=== PATIENT | female | born 1940 | race Caucasian/White ===

== ENCOUNTER → 2018-04-20 09:30 | Outpatient (BNVA) | payer MEDICARE, OTHER, SELFPAY | PROVIDERS: PCP Family Medicine; Referring Provider Family Medicine; Visit Provider Surgery | DX: L98.9 Disorder of the skin and subcutaneous tissue, unspecified (principal); I10 Essential (primary) hypertension | CPT/HCPCS: 99203 ==

== ENCOUNTER 2018-05-09 07:16 | Day surgery (SDC) | payer MEDICARE, OTHER, SELFPAY ==
--- NOTE | 2018-05-09 06:47 | W.PM.OP ---
Date of service: 05/09/18 Time of Service: 08:33 Operative Note DATE OF PROCEDURE: 05/09/18 PRE-OP DIAGNOSIS: Skin Lesion of right upper extremity POST-OP DIAGNOSIS: same PROCEDURE: Wide local excision of skin lesion Lesion measured 2 x 3 cm Excision size- 4 x 8 cm SURGEON: Yesica Cleveland REVOLVING FIELD ASSEMBLER: Pat Motley ANESTHESIA: MAC (Brandi Castellanos, LOAN ANALYST/ ASA 3) ESTIMATED BLOOD LOSS: 5 PATHOLOGY: other (skin lesion marked on the superior corner) COMPLICATIONS: None Patient was transported to: same day Patient's condition: stable Indications: Mrs. Guerra is a pleasant 77 year old female with a 2.3 x 3 cm skin lesion on her right upper extremity. Risks, benefits, complications of right local excision were reviewed with the patient. Patient wished to proceed. No guarantees were given or implied. Findings: 2 x 3 cm lesion with thick scab Procedure Description: After informed consent was obtained the patient was taken to the operating room and placed in a supine position. Monitors were applied and a timeout was done. The patient's name, date of , procedure type and site, allergies to medications and any prophylactic antibiotics were reviewed. Her right upper extremity was then prepped and draped in a sterile surgical fashion using chlorprep. The site been marked in same day surgery with my initials. The lesion was measured at 2 x 3 cm. An elliptical area was marked around the lesion measuring 4 x 8 cm in a vertical fashion around the lesion. 30 cc of Exparel mixed with half percent bupivacaine was then injected into the dermis and subcutaneous tissue . Next using a 15 blade the skin was incised along the previously marked area down to the subcutaneous fat. Cautery was then used to go through the subcutaneous fat circumferentially and under the lesion. Once the lesion was removed the superior corner was marked with 3-0 Vicryl. The wound was slightly irrigated and any small bleeders were cauterized. Once the wound was dry skin flaps were created circumferentially in order to take tension off the skin. The subcutaneous tissue was then re-approximated with interrupted 2-0 Vicryl sutures. The dermis was closed using 3-0 Prolene horizontal mattress sutures. 10 more cc of the Exparel and bupivocaine was injected into the dermis. The skin was then cleaned and dried Mastisol and Steri-Strips were applied over the sutures. 4 x 4's were then placed over the incision and secured with Kerlix. Patient was then awoken up from her MAC sedation and taken back to same day surgery in stable condition. She tolerated the procedure well. There were no immediate complications. Instrument, sponge and needle counts were correct at the end of the case x2.
--- NOTE | 2018-05-09 06:52 | W.PM.DSUDISC ---
Discharge Plan Disposition Patient Disposition: HOME Condition: Good Discharge Details Reason For Visit: Right upper extremity skin lesion Attending Provider: Yesica Cleveland Primary Care Provider: Robinson Zacarias JR Home Meds and New Rx's Prescriptions: Continued cholecalciferol (vitamin D3) 1,000 unit capsule 1,000 unit PO DAILY RF: 0 ympdlxcqzj-nwitpdxvx-ftwarmnmf 10-160-12.5 mg tablet 1 tab PO DAILY RF: 0 nifedipine 30 mg tablet extended release 30 mg PO DAILY RF: 0 metoprolol tartrate 50 mg tablet 50 mg PO DAILY RF: 0 aspirin [Adult Aspirin Regimen] 81 mg tablet,delayed release (DR/EC) 81 mg PO DAILY RF: 0 Discharge Instructions Additional Instructions: Activity at Home after surgery: 1. Make sure you walk outside at least 4 times per day 2. You should be able to climb a flight of stairs 3. No driving while in pain or taking pain medications 4. No strenuous activity Diet, Nutrition, & wound healin. Avoid alcohol until after you are recovered from your surgery 2. Make sure to eat plenty of lean protein (meat, fish, eggs, cottage cheese, beans) 3. Eat a variety of fruits and vegetables. Eat plenty of high fiber foods to avoid constipation. 4. Drink plenty of liquids to stay hydrated and avoid constipation Pain Medications: 1. Alternate Tylenol 1000 mg and Ibuprofen 600 mg every 3 hours For Constipation: 1. Take Milk of Magnesia or MiraLax as needed for constipation Other: 1. You may shower daily. Do not scrub the incisions 2. Do not soak the incisions for 1 week 3. You may alternate ice and heat as needed for pain and swelling Wound Care: 1. Keep the incisions clean and dry Other Services that may have been ordered: 0 Home Health- to help with dressing changes 0 Outpatient physical therapy Please call our office if you develop: 1. Fevers >101.5 2. Nausea or Vomiting 3. Worsening pain 4. Redness and thick discharge from the wounds If after hours please call the Hospital at and ask to speak to the on-call surgeon Referrals: Pat Motley PA [[facility]] - 05/18/18 11:45 am (for suture removal) Activity:: Activity as Tolerated Diet:: As Tolerated Discharge Orders Discharge Orders: Discharge Order (Routine); Ordered 05/09/18 Ordered By: Yesica Cleveland DS: Diagnosis Discharge Diagnosis (1) Skin lesion of right arm: Status: Deleted (2) H/O radical excision of skin lesion: Status: Deleted
--- NOTE | 2018-05-09 06:53 | ROE_ITS ---
Date of service: 05/09/18 Time of Service: 08:33 Operative Note DATE OF PROCEDURE: 05/09/18 PRE-OP DIAGNOSIS: Skin Lesion of right upper extremity POST-OP DIAGNOSIS: same PROCEDURE: Wide local excision of skin lesion Lesion measured 2 x 3 cm Excision size- 4 x 8 cm SURGEON: Yesica Cleveland MANAGER STORE: Pat Motley ANESTHESIA: MAC (Brandi Castellanos, RESIDENTIAL SUBSTANCE ABUSE COUNSELOR/ ASA 3) ESTIMATED BLOOD LOSS: 5 PATHOLOGY: other (skin lesion marked on the superior corner) COMPLICATIONS: None Patient was transported to: same day Patient's condition: stable Indications: Mrs. Guerra is a pleasant 77 year old female with a 2.3 x 3 cm skin lesion on her right upper extremity. Risks, benefits, complications of right local excision were reviewed with the patient. Patient wished to proceed. No guarantees were given or implied. Findings: 2 x 3 cm lesion with thick scab Procedure Description: After informed consent was obtained the patient was taken to the operating room and placed in a supine position. Monitors were applied and a timeout was done. The patient's name, date of , procedure ty pe and site, allergies to medications and any prophylactic antibiotics were reviewed. Her right upper extremity was then prepped and draped in a sterile surgical fashion using chlorprep. The site been marked in same day surgery with my initials. The lesion was measured at 2 x 3 cm. An elliptical area was marked around the lesion measuring 4 x 8 cm in a vertical fashion around the lesion. 30 cc of Exparel mixed with half percent bupivacaine was then injected into the dermis and subcutaneous tissue . Next using a 15 blade the skin was incised along the previously marked area down to the subcutaneous fat. Cautery was then used to go through the subcutaneous fat circumferentially and under the lesion. Once the lesion was removed the superior corner was marked with 3-0 Vicryl. The wound was slightly irrigated and any small bleeders were cauterized. Once the wound was dry skin flaps were created circumferentially in order to take tension off the skin. The subcutaneous tissue was then re- approximated with interrupted 2-0 Vicryl sutures. The dermis was closed using 3-0 Prolene horizontal mattress sutures. 10 more cc of the Exparel and bupivocaine was injected into the dermis. The skin was then cleaned and dried Mastisol and Steri-Strips were applied over the sutures. 4 x 4's were then placed over the incision and secured with Kerlix. Patient was then awoken up from her MAC sedation and taken back to same day surgery in stable condition. She tolerated the procedure well. There were no immediate complications. Instrument, sponge and needle counts were correct at the end of the case x2.
--- NOTE | 2018-05-09 06:55 | PDOC.DSDIS_ITS ---
Discharge Plan Disposition Patient Disposition: HOME Condition: Good Discharge Details Reason For Visit: Right upper extremity skin lesion Attending Provider: Yesica Cleveland Primary Care Provider: Robinson Zacarias JR Home Meds and New Rx's Prescriptions: Continued cholecalciferol (vitamin D3) 1,000 unit capsule 1,000 unit PO DAILY RF: 0 xzptmtyxqb-qekpydosd-expjpnubc 10-160-12.5 mg tablet 1 tab PO DAILY RF: 0 nifedipine 30 mg tablet extended release 30 mg PO DAILY RF: 0 metoprolol tartrate 50 mg tablet 50 mg PO DAILY RF: 0 aspirin [Adult Aspirin Regimen] 81 mg tablet,delayed release (DR/EC) 81 mg PO DAILY RF: 0 Discharge Instructions Additional Instructions: Activity at Home after surgery: 1. Make sure you walk outside at least 4 times per day 2. You should be able to climb a flight of stairs 3. No driving while in pain or taking pain medications 4. No strenuous activity Diet, Nutrition, & wound healin. Avoid alcohol until after you are recovered from your surgery 2. Make sure to eat plenty of lean protein (meat, fish, eggs, cottage cheese, beans) 3. Eat a variety of fruits and vegetables. Eat plenty of high fiber foods to avoid constipation. 4. Drink plenty of liquids to stay hydrated and avoid constipation Pain Medications: 1. Alternate Tylenol 1000 mg and Ibuprofen 600 mg every 3 hours For Constipation: 1. Take Milk of Magnesia or MiraLax as needed for constipation Other: 1. You may shower daily. Do not scrub the incisions 2. Do not soak the incisions for 1 week 3. You may alternate ice and heat as needed for pain and swelling Wound Care: 1. Keep the incisions clean and dry Other Services that may have been ordered: 0 Home Health- to help with dressing changes 0 Outpatient physical therapy Please call our office if you develop: 1. Fevers >101.5 2. Nausea or Vomiting 3. Worsening pain 4. Redness and thick discharge from the wounds If after hours please call the Hospital at and ask to speak to the on-call surgeon Referrals: Pat Motley PA [[facility]] - 05/18/18 11:45 am (for suture removal) Activity:: Activity as Tolerated Diet:: As Tolerated Discharge Orders Discharge Orders: Discharge Order (Routine); Ordered 05/09/18 Ordered By: Yesica Cleveland DS: Diagnosis Discharge Diagnosis (1) Skin lesion of right arm: Status: Deleted (2) H/O radical excision of skin lesion: Status: Deleted
[2018-05-09 07:47] VITALS: BP 144/69; PULSE 67; RESP 18; TEMP 36.3; O2SAT 96
[2018-05-09] MEDS: Lactated Ringers 1,000 ML 80 ML IV (08:03)
--- NOTE | 2018-05-09 08:45 | SKI_PTH ---
PATIENT: Bárbara Guerra LOC: [facility] U#:[id number] AGE/SX: 77/F ROOM: RE05/09/[address]: Yesica Cleveland MD : 1940 BED: DIS: 05/09/2018 SPEC #: [id number] RECD: 05/09/18 12:38 STATUS: LUIS ANTONIO REEugenie #: [id number] ANTIONE: 05/09/18 08:[address]: Yesica Cleveland DEPT: Surgical Specimen RECD BY: Claudia Garcia ENTERED: 05/09/18 12:42 SP TYPE: PAOLA OTHR DR: Robinson Zacarias JR Tissues: 1 - SKIN BIOPSY(SHAVE/PUNCH) Procedures: SKIN LEVEL 4 Comments: [id number]
[2018-05-09] MEDS: Bupivacaine 0.5% Pres-Free 30 ML VIAL (08:58)
[2018-05-09 09:46] VITALS: BP 140/74; PULSE 54; RESP 18; TEMP 35.9; O2SAT 95
== END 2018-05-09 10:10 | disposition home or self-care (01) ==
LOC: SUR 07:16
PROVIDERS: PCP Family Medicine; Visit Provider Surgery
PROC: (CPT 11406; principal; 2018-05-09 08:30)
DX: L90.5 Scar conditions and fibrosis of skin (principal); I10 Essential (primary) hypertension
CPT/HCPCS: 11406; 12034; 88304; 88305

== ENCOUNTER → 2018-05-18 11:51 | Outpatient (BNVA) | payer MEDICARE, OTHER, SELFPAY | PROVIDERS: PCP Family Medicine; Referring Provider Family Medicine; Visit Provider Physical Therapy Assistant | DX: L98.9 Disorder of the skin and subcutaneous tissue, unspecified; I10 Essential (primary) hypertension; Z48.02 Encounter for removal of sutures ==

== ENCOUNTER → 2022-03-24 12:58 | Outpatient (CLI) | payer MEDICARE, OTHER, SELFPAY ==
--- NOTE | 2022-03-24 | DI.CT_ITS ---
Exam(s) CT CHEST W EXAM: CT CHEST W CLINICAL HISTORY: ABNL CXR AT [facility], HX BREAST CANCER TECHNIQUE: Imaging Protocol: Axial computed tomography images with coronal and sagittal reformatted images were created and reviewed CONTRAST MATERIAL: Intravenous: Omnipaque 350 Contrast volume:70 ml. COMPARISON: DX XR CHEST 2 VIEWS from 03/23/2022 FINDINGS: Tracheobronchial tree: No bronchiectasis or mucous plugging. Mediastinum and Missy: No dominant adenopathy or fluid collection. Pulmonary parenchyma: Underlying mild emphysematous changes. Dense area of consolidation in the post eromedial right upper lobe as well as the entire right lower lobe. Significant atelectasis of the ri ght upper lobe and multiple cystic spaces. 13 x 17 by 12 millimeter mass superior segment right lowe r lobe. Additional nodule more inferiorly measuring 6 x 7 millimeters. L2 other small tiny nodules are seen in the adjacent region of the right lower lobe. Pleura: No effusion or pneumothorax. Heart: Mildly dilated right atrium.. coronary artery calcifications are seen. Aorta: Thoracic aorta non-dilated. Upper abdomen: Unremarkable. Lymph nodes: Within normal limits. Bones: Degenerative changes. Minimal T7 compression. Severe degenerative changes right shoulder. No lytic or blastic lesions. Soft tissues: Monitoring device medial left upper chest. IMPRESSION: Severe pneumonia with dense consolidation of the right upper lobe with severe atelectasis. consolid ation of the entire right lower lobe. 17 millimeter mass superior segment left lower lobe. Additional 7 millimeter mass or stone posterior left lower lobe. Findings could be infectious however the appearance is suspicious for malignancy. RADIATION DOSE DELIVERED: 696.19mGy.cm Total DLP DATA REPOSITORY: All CT scans at this facility are submitted to the National Radiology Data Registry (NRDR) Dose Index Registry (DIR) with the [employer] ([employer]). RADIATION OPTIMIZATION: All CT scans at this facility use at least one of these dose optimization te chniques: automated exposure control; mA and/or kV adjustment per patient size (includes targeted exa ms where dose is matched to clinical indication); or iterative reconstruction.
[2022-03-24] MEDS: Omnipaque 350 MG/ML 100 ML BTL IJ (14:07)
[2022-03-24] MEDS: Normal Saline - Diluent 50 ML VIAL IJ (14:08)
== END ==
PROVIDERS: PCP Family Medicine; Visit Provider Family Medicine
DX: J18.9 Pneumonia, unspecified organism (principal); J98.11 Atelectasis; R91.8 Other nonspecific abnormal finding of lung field
CPT/HCPCS: 71260; J3490

== ENCOUNTER 2022-09-28 15:00 | Inpatient (IN) | payer MEDICARE, OTHER, SELFPAY ==
[2022-09-28] VITALS (56 sets, daily range): BP systolic 79–114; BP diastolic 27–79; PULSE 69–141; RESP 4–30; TEMP 36.6; O2SAT 91–94
--- NOTE | 2022-09-28 15:00 | RT.EKG_ITS ---
APPROVED REPORT Exam: Resting ECG Reason for Exam: weakness Patient Location: E HR:99 bpm ECG Measurements Heart Rate 99 AXIS ID [id number] P [id number] QRSd 144 QRS -76 QT 426 T 85 QTc 547 Conclusion Accelerated junctional rhythm...absent P waves, accele'd V-rate IVCD, consider RBBB...QRSd>120mS, terminal axis(90,270) LVH with secondary repolarization abnormality...multi-LVH criteria, abnrm ST-T ST elevation secondary to LVH...Multiple VCG criteria
--- NOTE | 2022-09-28 15:16 | ED.GENADUL_ITS ---
Discharge Plan Disposition Patient Disposition: Admit to [facility] Discharge Details Clinical Impression: Sepsis, Pneumonia, Lung cancer, Non-ST elevation NM (NSTEMI) Primary Care Provider: Robinson Zacarias JR ED Provider: Ashvin De Dios Home Meds and New Rx's Prescriptions: Continued metoprolol succinate 50 mg cap,sprinkle,ER 24hr dose pack 50 mg PO DAILY cholecalciferol (vitamin D3) 1,000 unit capsule 1,000 unit PO DAILY Eliquis 5 mg tablet 5 mg PO BID loratadine [Claritin] 10 mg tablet 10 mg PO DAILY fluticasone propionate 50 mcg/actuation spray,suspension 1 spray intranasal DAILY Rx Instructions: administer into each nostril valsartan-hydrochlorothiazide 160-12.5 mg tablet 1 tab PO DAILY Discharge Data Discharge Physician: Ashvin De Dios Medical Decision Making Patient presents emergency department with 2 weeks of lethargy weakness and for the last week not eating not drinking with profuse watery diarrhea and now shortness of breath who is hypotensive initially. Sepsis protocol was started with 30 cc/kg IV fluid hydration blood cultures lactic acid empiric antibiotics. Patient was given IV fluids Toradol 2700 with improvement of her pressure patient was 100/70. EKG was done which showed a left bundle branch block and A- fib. monitoring analyst shows continuation of the left bundle with alternation in periods of A-fib with normal sinus rhythm and probably PVCs. [id number] ultrasound shows a hyperdynamic ventricle with a normal to elevated ejection fraction and a collapsed IVC compatible with hypotension and dehydration. There is to note the anteroseptal wall is hypokinetic. Cardiology was consulted who feels at this time this is more related to the overall systemic illness which is dehydration and sepsis and they will not indicate a cardiac authorization at this time. Patient has somewhat improved with fluids and antibiotics and will be admitted to the intensive care unit. Chest x-ray shows an infiltrate in the right lower lung with atelectasis and probably an effusion pain and can be the cause of the sepsis Differential Diagnosis Differential Diagnosis: 1. Sepsis 2. ACS 3. Dehydration Medical Records Medical records reviewed: Yes I reviewed the patient's medical records. Imaging Data Radiologic Study: Imaging: X-Ray My impression: Right middle lower lobe infiltrate with effusion and atelectasis Radiologist's impression: Patient Name: Jim Kerr Unit #: [id number] Loc: ER ? Ordering Provider:? Status: REG ER ? Primary Care Provider: Benjamin Varghese Date of Exam: 09/28/22 Sex: M ? : 12/17/2012 Age: 9 ? Exam(s) PROCEDURE INFORMATION: Exam: US Scrotum Exam date and time: 09/28/2022 4:50 PM Age: 9 years old Clinical indication: Scrotum pain TECHNIQUE: Imaging protocol: Real-time ultrasound of the scrotum and contents with color Doppler and image documentation. COMPARISON: No relevant prior studies available. FINDINGS: Right testicle: The right testicle is normal appearance with normal color Doppler flow measuring 1.6 x 1.1 x 1.8 cm. Left testicle: The left testicle is normal appearance with normal color Doppler flow measuring 2.1 x 1.2 x 1.7 cm. Epididymides: The right epididymal head is normal appearance measuring 0.6 x 0.8 x 0.6 cm. The left epididymis demonstrates normal color Doppler flow measuring 0.6 x 0.9 x 0.6 cm. A 0.3 x 0.3 cm epididymal cyst is seen. Scrotum/soft tissues: No right-sided varicocele or hydrocele. No left-sided varicocele or hydrocele. Other findings: A possible left lateral inguinal hernia is seen which may contain loops of bowel. IMPRESSION: 1. ? No evidence for testicular torsion. 2. ? Possible left lateral inguinal hernia, which may contain loops of bowel. 3. ? Small left-sided epididymal cyst. Dictated and Authenticated by: Mis Calix MD. Ordering:GRETCHEN Lock MD Ordered By:? Lab Data Lab results reviewed: Yes I reviewed the patient's lab results. Lab results narrative: Please see above the narrative of the abnormal labs and the data analyzed by me ECG Data Attestation: I personally reviewed and interpreted this ECG (s) as follows: Prior ECG tracings: not available for review Interpretation: wide complex tachycardia alternating witb afic an aberrancy and PVC HPI General Date/Time Provider Initiated Documentation: 09/28/22 15:12 . HPI Narrative: Patient presents emergency department complaint of 3 days of feeling very weak tired not eating or drinking well inhabitant and also having watery diarrhea. Patient was diagnosed with lung cancer months ago and received immunotherapy ab out 2 weeks ago which according to family she did well. Today she says she feels very weak tired denies any dizziness denies any chest pain denies any headache. Also reports shortness of breath especially on exertion and states that she uses oxygen at home at night but recently she had to up the oxygen to have it delivered all day. Reports cough nonproductive sputum. Denies any dysuria. Related Data Home Medications Medication Instructions Recorded Confirmed cholecalciferol (vitamin D3) 25 1,000 unit PO DAILY 04/09/18 01/25/22 mcg (1,000 unit) capsule metoprolol succinate 50 mg capsule 50 mg PO DAILY 05/18/18 01/25/22 sprinkle, ext. release 24 hr apixaban 5 mg tablet (Eliquis) 5 mg PO BID 01/25/22 01/25/22 fluticasone propionate 50 1 spray intranasal DAILY post 01/25/22 01/25/22 mcg/actuation nasal nasal drip spray,suspension loratadine 10 mg tablet (Claritin) 10 mg PO DAILY 01/25/22 01/25/22 valsartan 160 1 tab PO DAILY 01/25/22 mg-hydrochlorothiazide 12.5 mg tablet Allergies Allergy/AdvReac Type Severity Reaction Status Date / Time No Known Allergies Allergy Verified 01/25/22 13:05 General Stated Complaint: GenMedical GUSTAVO: 3 Review of Systems All systems reviewed & are unremarkable except as noted in HPI and below Constitutional Constitutional: Reports as per HPI, Reports daytime sleepiness, Reports lethargy, Reports poor appetite and Reports weakness Eyes Eyes: Reports as per HPI and Reports system reviewed and no additional complaints, except as documented ENT Ears, Nose, Mouth, and Throat: Reports system reviewed and no additional complaints, except as documented and Reports as per HPI Cardiovascular Cardiovascular: Reports as per HPI, Reports system reviewed and no additional complaints, except as documented and Reports dyspnea Respiratory Respiratory: Reports cough and Reports dyspnea Gastrointestinal Gastrointestinal: Reports as per HPI, Reports system reviewed and no additional complaints, except as documented, Reports diarrhea and Reports nausea Genitourinary Genitourinary: Reports system reviewed and no additional complaints, except as documented Musculoskeletal Musculoskeletal: Reports system reviewed and no additional complaints, except as documented Neurologic Neurologic: Reports system reviewed and no additional complaints, except as documented and Reports weakness Psychiatric Psychiatric: Reports system reviewed and no additional complaints, except as documented Endocrine Endocrine: Reports system reviewed and no additional complaints, except as documented Hematologic/Lymphatic Hematologic/Lymphatic: Reports system reviewed and no additional complaints, except as documented Allergic/Immunologic Allergic/Immunologic: Reports system reviewed and no additional complaints, except as documented PFSH All Active Problems Sepsis (Acute) Pneumonia (Acute) Lung cancer (Chronic) Non-ST elevation NM (NSTEMI) (Acute) Nail dystrophy (Acute) Skin lesion of right upper extremity (Acute ~05/2018) H/O mastectomy (Chronic) with SLN bx Medical History Back pain Basal cell carcinoma Breast cancer, right Hypertension Left hip pain Social History Smoking/Tobacco Use Status: Former Tobacco Use Smoking risk assessment performed?: Yes Alcohol Intake: current Alcohol Intake frequency: holidays/special occasions only Drug use: Never Substance use type: does not use Do you feel safe at home: Yes Do you feel safe in your relationship?: Yes Exam Narrative Exam Narrative: Exam; vitals signs as reported above hypotensive Constitutional; In no acute distress, afebrile General: cooperative, healthy appearing, comfortable and no acute distress HEEENT: dry mucous membranes Head: normal to inspection, no palpable skull fracture and normocephalic Eyes: l: appearance normal, both eyes and all related structures Pupils: PERRL EOM: EOM intact bilaterally Direct ophthalmoscopy: normal light reflex, normal conjunctiva, normal visual acuity Neck no JVD, supple Neck: normal visual inspection, full ROM and no lymphadenopathy Chest Chest: normal inspection of the chest, this decreased breath sounds and absent in the base of the right hemithorax Respiratory : normal respiratory effort and able to speak in complete sentences Cardio Rate: Rhythm: Irregularly irregular rate and rhythm heart sounds S1 and S2 no murmurs, gallops, or rubs GI Inspection: normal to inspection, normal bowel sounds, soft, non tender, non distended, no organomegally Back/Spine/ no CVA tenderness Thoracic/Lumbar Spine: no tenderness or deformities Skin no rashes or lesions Neuro: patient alert and no meningeal signs, Cranial Nerves: CN's II-XI intact bilaterally, Cognition: normal cognition, Speech: speech normal, Gait: normal gait, Depp tendon reflexes normal 2+ Extremities, no edema, full range of motion, generalized weakness Course Reevaluation(s) Initial Evaluation: Patient presents hypotensive coughing and short of breath with a low oxygen saturation at 92% on 2 L nasal cannula. Sepsis protocol was started with IV fluids at 30 cc/kg blood cultures lactic acid. Tfoqi-[id number]-[id number] ultrasound was ordered as well and EKG Time: 15:30 Reevaluation: Patient's blood pressure is improved after 30 cc/kg IV fluids Labs showed lactic acidosis. [id number] ultrasound shows collapsed IVC with hyperdynamic ventricle with anterior septal hypokinesis Labs are concerning for lactic acidosis elevated BUN to creatinine ratio and an elevated troponin. Chest x-ray shows a right infiltrate so after blood cultures and. Antibiotics ceftriaxone and azithromycin were administered. Time: 16:30 Consultations Consultation #1: Consultation with [facility] cardiology was obtained for the elevated troponin in the abnormal EKG that shows a left bundle branch block with PVCs with A-fib. Patient does not have any chest pain so the general office associate felt that at this time the elevated troponin probably is from the sepsis and the cardiac stressors as well as dehydration and he feels that at this time should not be followed for this is not an indication for catheterization at this time. Time: 18:35 Vital Signs Vital signs: Vital Signs Respiratory Rate 20 09/28/22 15:04 Pulse Oximetry 93 09/28/22 15:04 Respiratory Rate 20 09/28/22 15:04 Respiratory Effort Short of Breath 09/28/22 15:11 Blood Pressure Position Supine 09/28/22 15:04 Pulse Oximetry 93 09/28/22 15:04 Oxygen Delivery Method Nasal Cannula 09/28/22 15:04 Oxygen Flow Rate 4 09/28/22 15:04 Critical Care Time Critical Care Time Critical Care Time: Yes Total Critical Care Time: 45 Attestation: Critical time the in this patient of 45 minutes excluding procedure time. Patient with deterioration of the cardiovascular system due to sepsis POCUS Exam (ED) Limited Cardiac Exam DATE OF EXAM: 09/28/22 TIME OF EXAM: 16:30 PROVIDER THAT PERFORMED THE STUDY: Ashvin De Dios IS THIS A REPEAT EXAM DURING THIS ENCOUNTER: no REASON FOR EXAM: Hypotension VISUALIZED STRUCTURES: Four Chambers, Left atrium, Left ventricle, LVOT, Right atrium, Right ventricle, Aortic valve, Mitral valve, Interventricular septum and IVC VIEW OBTAINED: Apical 4-Chamber, Parasternal long-axis, Parasternal short-axis and Subxiphoid PERTINENT FINDINGS/IMPRESSION: IVC inspiratory collapsability (exagerated collapsibility) and LV dysfunction (hyperdynamic, with hypokinesis anterio septal reyes) DIFFERENTIAL DIAGNOSES: LV disfunction with hypovolemia Exam complete PAWSS Have you Been Recently Intoxicated or Drunk Within the Last 30 days?: No Have you Ever Experienced Previous Episodes of Alcohol Withdrawal?: No Have you ever Experienced Withdrawal Seizures?: No Have you ever Experienced Delirium Tremens(DT)s?: No Have you ever undergone Alcohol Rehabilitation Treatment (i.e, inpt ot outpatient treatment programs)?: No Have you ever Experienced Blackouts?: No Have you ever Combined Alcohol with other Downers within the last 90 days?: No Have you ever Combined Alcohol with any other Substance of Abuse during the last 90 days?: No Positive Blood Alcohol level on Presentation? [PCS.BAL]: No Evidence of Increased Autonomic Activity (i.e. HR>120, tremor, sweating, agitation, nausea)?: No Result: 0 Vital Signs and Lab Results Vital Signs Most Recent Vital Signs in EMR: Most Recent Vital Signs Pulse Resp BP Pulse Ox 93 H 24 79/27 L 93 09/28/22 17:46 09/28/22 17:46 09/28/22 17:46 09/28/22 15:04 Lab Results 09/28/22 15:53 09/28/22 15:53 Blood Type / Crossmatch: No Data to Display Complete Blood Count: White Blood Count 8.95 10^3/uL (4.4-10.8) 09/28/22 15:53 Red Blood Count 4.71 10^6/uL (3.93-5.22) 09/28/22 15:53 Hemoglobin 15.4 g/dL (11.2-15.7) 09/28/22 15:53 Hematocrit 44.7 % (36.0-46.0) 09/28/22 15:53 Platelet Count 297 10^3/uL (130-400) 09/28/22 15:53 Venous Blood Lactate 1.5 mmol/L (0.6-1.4) H 09/28/22 15:53 Complete Metabolic Panel: Sodium 136 mmol/L (136-145) 09/28/22 15:53 Potassium 3.8 mmol/L (3.5-5.1) 09/28/22 15:53 Chloride 101 mmol/L (98-107) 09/28/22 15:53 Carbon Dioxide 21.9 mmol/L (21.0-32.0) 09/28/22 15:53 BUN 37 mg/dL (7-18) H 09/28/22 15:53 Creatinine 1.4 mg/dL (0.55-1.02) H 09/28/22 15:53 Est GFR (CKD-EPI 2020) 37.33 (mL/min/1.73m2) 09/28/22 15:53 Calcium 8.7 mg/dL (8.5-10.1) 09/28/22 15:53 Albumin 2.8 g/dL (3.4-5.0) L 09/28/22 15:53 Glucose 120 mg/dL (74-106) H 09/28/22 15:53 Liver Function Panel: Alanine Aminotransferase (ALT/SGPT) 131 U/L (14-59) H 09/28/22 15:53 Aspartate Amino Transf (AST/SGOT) 297 U/L (15-37) H 09/28/22 15 :53 Coagulation Panel: INR International Normalized Ratio 1.1 (0.9-1.1) 09/28/22 15:5 3 Prothrombin Time 11.6 sec (9.3-11.0) H 09/28/22 15:53 Cardiac Panel: Troponin I 34322 ng/L (<or=60) H* 09/28/22 Arterial Blood Gas: 2 No Data to Display Venous Blood Gas: No Data to Display Pancreas Panel: No Data to Display Thyroid Panel: No Data to Display Infectious Disease: No Data to Display Blood Cultures: No Data to Display Toxicology Panel: No Data to Display
[2022-09-28] MEDS: Normal Saline 1,000 ML 2700 ML IV (15:39)
[2022-09-28 15:59] LABS: Abs Immature Grans 0.02 10^3/uL (0.0-0.06); Absolute Eosinophil Count 0.32 10^3/uL (0.0-0.7); Absolute Lymphocyte Count 1.33 10^3/uL (1.2-3.4); Absolute Monocyte Count 1.24 10^3/uL (0.1-0.8); Absolute Neutrophil Count 5.94 10^3/uL (1.2-6.7); Basophils % 1.1; Eosinophils % 3.6; HCT 44.7 % (36.0-46.0); HGB 15.4 g/dL (11.2-15.7); Immature Grans % 0.2; Lactate 1.5 mmol/L (0.6-1.4); Lymphocytes % 14.9; MCH 32.7 pg (27.0-33.0); MCHC 34.5 % (32.0-36.0); MCV 95 fL (80-95); MPV 9.9 fL (8.0-11.0); Monocytes % 13.9; Neutrophils % 66.3; Platelet Count 297 10^3/uL (130-400); RBC 4.71 10^6/uL (3.93-5.22); RDW 12.9 % (11.7-14.6); RDW-SD 45.2 fL; WBC 8.95 10^3/uL (4.4-10.8)
[2022-09-28 16:10] LABS: INR 1.1 (0.9-1.1); Prothrombin Time 11.6 sec (9.3-11.0)
[2022-09-28 16:19] LABS: ALT 131 U/L (14-59); AST 297 U/L (15-37); Albumin 2.8 g/dL (3.4-5.0); Alkaline Phosphatase 101 U/L (46-116); Anion Gap 13.1 mmol/L (3-11); BUN 37 mg/dL (7-18); Bilirubin, Total 0.5 mg/dL (0.2-1.0); CO2 21.9 mmol/L (21.0-32.0); CREATININE 1.4 mg/dL (0.55-1.02); Calcium 8.7 mg/dL (8.5-10.1); Chloride 101 mmol/L (98-107); Estimated GFR 37.33 (mL/min/1.73m2); Glucose 120 mg/dL (74-106); Potassium 3.8 mmol/L (3.5-5.1); Sodium 136 mmol/L (136-145); Total Protein 7.1 g/dL (6.4-8.2)
--- NOTE | 2022-09-28 16:20 | DI.RAD_ITS ---
Exam(s) XR PORTABLE CHEST AP EXAM: XR PORTABLE CHEST AP CLINICAL HISTORY: SOB TECHNIQUE: 2D digital imaging was performed of the chest. One image was obtained. An AP view was ob tained. COMPARISON: DX XR CHEST 2 VIEWS from 03/23/2022 FINDINGS: MEDIASTINUM: Please see below under lungs section. HEART: Normal. PULMONARY VASCULATURE: Normal. LUNGS: There are faint nodular densities seen in the left lung. No focal consolidation is seen in th e left lung. There is opacification in the inferior half of the right lung. This may be related to atelectasis, pneumonia or fluid. There is prominence of the right hilum and a central mass is suspec leonardo. Adenopathy cannot be excluded. This area is more prominent compared to the examination from . PLEURAL SPACE: No pleural effusion or pneumothorax. BONE:Within normal limits for the patient's age. OTHER FINDINGS:Normal. IMPRESSION: 1. Consolidation involving the lower half of the right lung. This may represent atelectasis, pneumon ia or effusion. 2. Increased prominence of the right hilum. Right hilar mass or adenopathy is suspected. 3. Faint nodular density seen in the left lung suspicious for metastases. 4. CT scan of the chest may be considered for further evaluation in this patient. DATA REPOSITORY: RADIATION DOSE DELIVERED:
[2022-09-28 16:40] LABS: Troponin I 40927 ng/L (<or=60)
--- OUTSIDE RECORDS SUMMARY | 2022-09-28 17:04 | XMS_ITS | CCD ---
Author Name Unknown Address [address] [place] [address] [id number] Organization Unknown Address [address] [place] [address] [id number] Care Team Providers Care Silk Screen Operator Name Role Phone WILLEM MEIER Attending Physician [phone] WILLEM MEIER Rounding (Secondary) Physician [phone] Vital Signs Unknown or Not Available. Allergies Unknown or Not Available. Procedures Unknown or Not Available. History of Immunizations Unknown or Not Available. Problems Unknown or Not Available. Results Unknown or Not Available. Active Medications Unknown or Not Available. Medications Administered During Visit Unknown or Not Available. Encounters Encounter Diagnosis Diagnosis Code Start Date Paroxysmal atrial fibrillation I480 0 12/02/2021 Social History Unknown or Not Available. Patient Decision Aids Unknown or Not Available. Discharge Instructions You were admitted to [facility] on 12/02/2021 14:16 with a principal diagnosis of Paroxysmal atrial fibrillation You were discharged from [facility] on 12/02/2021 00:00 Should you have any questions prior to discharge, please contact a member of your healthcare team. If you have left the hospital and have any questions, please contact your primary care physician. Chief Complaint and Reason For Visit Unknown or Not Available. Function Status Unknown or Not Available. Plan of Care Unknown or Not Available. Referral/Transition of Care Unknown or Not Available.
[2022-09-28] MEDS: cefTRIAXone 1 GM VIAL IM (17:35)
[2022-09-28] MEDS: AZITHROMYCIN 500 MG in Normal Saline 250 ML 250 MG IVPB (17:35)
--- NOTE | 2022-09-28 18:47 | NUR.NOTE ---
Pt's IV infiltrated with azithromycin infusing. Pt's arm is swollen and bruised. Nurse called pharmacy for the next steps, pharmacy recommended warm compress to the site.
--- NOTE | 2022-09-28 18:56 | NUR.NOTE ---
Nursing Note: Blood pressures are soft, checked auto cuff and manual and trended, doctor aware.
[2022-09-28 20:20] LABS: Bilirubin Small (Negative); Blood Negative (Negative); Clarity Clear (Clear); Glucose Negative (Negative); Ketones Negative (Negative); Leukocyte Esterase Negative (Negative); Nitrite Negative (Negative); Specific Gravity >= 1.030 (1.005-1.025); Urobilinogen 0.2 mg/dL (Up to 0.2)
[2022-09-28 20:26] LABS: Bacteria Few HPF (Negative); C & S Indicated? Yes; Casts 3-5 Hyaline LPF (Negative); Crystals Negative HPF (Negative); Epithelial Cells Rare HPF (Negative); Mucus Trace (Negative); RBC 0-2 HPF (0-2)
--- NOTE | 2022-09-28 20:45 | HPE_ITS ---
Date of service: 09/28/22 Time of Service: 22:10 Assessment and Plan Assessment and plan (1) Sepsis: Status: Acute Assessment and plan: Low blood pressure, tachycardia, elevated lactate, and oliguria on admission are consistent with sepsis. She did respond to 30ml/kg fluid bolus. Pulse and BPs have improved, but clinically she is still a little dry so will give another 500ml of LR now. Blood cultures pending. Sourse is presumable the lung infection. Treatment as below initiated. ICU status to monitor hemodynamics and cardiac status (2) Pneumonia: Status: Acute Assessment and plan: Started on ceftriaxone and azithromycin, which is reasonable. I think 2g dose is more appropriate for a serious infection, additional ceftriaxone ordered. Add sputum culture. Consider CT of chest if symptoms not improving. (3) Non-ST elevation NC (NSTEMI): Status: Acute Assessment and plan: Her tropnonins are quite elevated and her EKG is difficult to interpret. She denies chest pain. The case was reviewed with [facility]iology where she has been seen, and troponin elevation felt secondary to acute infection/dehydration and they do not recommend considering invasive testing. I appreciate Dr. De Dios's POCUS exam which was reassuring in terms of estimated LVEF, some septal dyskenisis but this may be the bundle branch block I will ask for a formal echocardiogram tomorrow given evolving troponemia. Immune checkpoint inhibitors are associated with myocarditis. Cardiac MRI would be useful for this diagnosis, but this is not available here. Cardiology felt this is type 3 ischemia and no additional antiplatelet medication or heparin recommended. (4) Lung cancer: Status: Chronic Assessment and plan: Try to get records from [facility] heme/onc to clarify history and overall senior living prognosis. She was due for infusion tomorrow but obviously this will be postponed. (5) Hypertension: Assessment and plan: continue metoprolol, hold JEAN inh given OMID and soft blood pressures. (6) Elevated liver enzymes: Status: Acute Assessment and plan: I think this is either drug induced liver injury from the checkpoint inhibotors or hepatic congestion from the cardiac dysfunction. Follow. (7) Renal insufficiency: Status: Chronic Assessment and plan: THis is likely prerenal from dehydrations/sepsis, follow. (8) Atrial fibrillation: Status: Chronic Assessment and plan: On apixaban for stroke prevention, also covers DVT prevention. Continue metoprolol for rate control. (9) Discharge planning issues: Status: Acute Assessment and plan: She is ICU status given need for close cardiac monitoring with elevated troponins. She is full code. History of Present Illness History of Present Illness Chief Complaint: generalized weakness Narrative: 81 yo F with active lung cancer treated 2 weeks prior to admission with her first round of immune checkpoint therapy and history of HTN and atrial fibrillation on apixaban who is presenting with 3-4 days of increased shortness of breath, general weakness, fatigue, nausea, and diarrhea. She felt fine after her infusions until these symptoms started. She did feel feverish the day prior to admission, but normal tempurature at home. She has eaten very little over the past 3 days. Shortness of breath started a day or so before the other symptoms. She does have a cough and some sputum, but not more than her baseline level over the past few years. She has no chest pain or pressure, no pain in her arm or back. She has no abdominal pain. Her stools are 3/day and watery, not painful. She took 2 immodium this morning and another before coming into the hospital after another loose stool. Review of Systems Constitutional Constitutional: Denies chills, Denies headache(s), Reports lethargy, Reports malaise, Reports poor appetite and Denies weight loss Eyes Eyes: Reports diplopia (for the past 2 days), Denies irritation, Denies loss of vision and Denies eye pain ENT Ears, Nose, Mouth, and Throat: Denies change in voice, Denies dysphagia, Denies dizziness, Denies headache(s), Denies hoarseness, Denies nasal congestion, Denies nasal discharge and Denies sore throat Cardiovascular Cardiovascular: Denies chest pain and Denies orthopnea Respiratory Respiratory: Denies hemoptysis and Denies wheezing Gastrointestinal Gastrointestinal: Denies abdominal pain, Denies melena, Denies hematochezia, Denies dysphagia, Denies heartburn, Reports nausea and Denies vomiting Genitourinary Genitourinary: Denies hematuria, Denies dysuria and Denies urinary incontinence Musculoskeletal Musculoskeletal: Denies arthralgias Integumentary/Breasts Skin/Breast: Reports pruritus, Denies rash, Denies skin ulcer and Denies wounds Neurologic Neurologic: Denies confusion, Denies dizziness, Denies headache(s), Denies localized weakness, Denies loss of vision, Denies memory loss and Denies sensory deficit Psychiatric Psychiatric: Denies confusion, Denies memory loss and Denies mood swings Hematologic/Lymphatic Hematologic/Lymphatic: Denies easy bleeding Allergic/Immunologic Allergic/Immunologic: Denies wheezing PFSH All Active Problems (Updated 09/28/22 @ 22:58 by Louis Kapadia) Discharge planning issues (Acute) Atrial fibrillation (Chronic) Renal insufficiency (Chronic) Elevated liver enzymes (Acute) Sepsis (Acute) Pneumonia (Acute) Lung cancer (Chronic) Non-ST elevation NC (NSTEMI) (Acute) Nail dystrophy (Acute) Skin lesion of right upper extremity (Acute ~05/2018) H/O mastectomy (Chronic) with SLN bx Medical History (Updated 09/28/22 @ 23:14 by Louis Kapadia) Back pain Basal cell carcinoma Breast cancer, right Hypertension Left hip pain Surgical History (Updated 09/28/22 @ 22:58 by Louis Kapadia) S/P laparotomy for ectopic S/P lumpectomy of breast S/P right mastectomy Social History (Updated 09/28/22 @ 22:57 by Louis Kapadia) Smoking/Tobacco Use Status: Former Tobacco Use Smoking risk assessment performed?: Yes Alcohol Intake: current Alcohol Intake frequency: holidays/special occasions only Drug use: Never Substance use type: does not use Do you feel safe at home: Yes Do you feel safe in your relationship?: Yes Additional Social history: Lives in [place] with after living for many years in [place], [place]. Meds Allergies and Home Medications Allergies Allergy/AdvReac Type Severity Reaction Status Date / Time No Known Allergies Allergy Verified 01/25/22 13:05 Home Medications Medication Instructions Recorded Confirmed Type cholecalciferol (vitamin D3) 25 1,000 unit PO DAILY 04/09/18 01/25/22 History mcg (1,000 unit) capsule metoprolol succinate 50 mg capsule 50 mg PO DAILY 05/18/18 01/25/22 History sprinkle, ext. release 24 hr apixaban 5 mg tablet (Eliquis) 5 mg PO BID 01/25/22 01/25/22 History fluticasone propionate 50 1 spray intranasal DAILY post 01/25/22 01/25/22 History mcg/actuation nasal nasal drip spray,suspension loratadine 10 mg tablet (Claritin) 10 mg PO DAILY 01/25/22 01/25/22 History valsartan 160 1 tab PO DAILY 01/25/22 History mg-hydrochlorothiazide 12.5 mg tablet Exam Narrative Exam Narrative: GEN: Alert and oriented x 3, pleasant and cooperative, gives linear history. No acute distress at rest. HEENT: Head atraumatic. Conjunctiva clear, no icterus. PEERL, EOMI. Visual bean intact with confrontation, but sees double of everything. no rhinorrhea. MMM, OP benign. Neck is supple with no masses or lymphadenopathy, trachea midline LUNGS: rales just in left base, right base with demished breath sounds 1/2 up lung field posteriorly. CV: irregularly irregular with no murmurs, gallops, or rubs. PMI not displaced ABD: +BS, soft, NT/ND EXT: no cyanosis, clubbing, or edema MSK: No joint redness or swelling NEURO: CN 2-12 grossly intact but diploplia as above. negative pronator drift. Normal sensation and movement of 4 extremities. Normal speech and coordination SKIN: No rashes or open wounds. PSYCH: normal mood and affect Results Imaging Chest x-ray: report reviewed (1. Consolidation involving the lower half of the right lung. This may represent atelectasis, pneumonia or effusion. 2. Increased prominence of the right hilum. Right hilar mass or adenopathy is suspected. 3. Faint nodular density seen in the left lung suspicious for metastases. 4. CT scan of the c) and image reviewed Additional studies: POCUS (per Dr. De Dios): hyperdynamic ventricle with a normal to elevated ejection fraction and a collapsed IVC compatible with hypotension and dehydration.? There is to note the anteroseptal wall is hypokinetic EKG: report reviewed (Accelerated junctional rhythm...absent P waves, accele'd V-rate IVCD, consider RBBB...QRSd>120mS, terminal axis(90,270) LVH with secondary repolarization abnormality...multi-LVH criteria, abnrm ST-T ST elevation secondary to LVH...Multiple VCG criteria) and image reviewed Labs 09/28/22 15:53 09/28/22 15:53 Labs: Laboratory Results - last 24 hr 09/28/22 09/28/22 09/28/22 15:33 15:53 15:53 WBC RBC Hgb Hct MCV MCH MCHC RDW Plt Count MPV Immature Gran % Neutrophils % Lymphocytes % Monocytes % Eosinophils % Basophils % Nucleated RBC % Absolute Neutrophils Absolute Lymphocytes Absolute Monocytes Absolute Eosinophils Absolute Basophils PT INR VBG Lactate 1.5 H Sodium 136 Potassium 3.8 Chloride 101 Carbon Dioxide 21.9 Anion Gap 13.1 H BUN 37 H Creatinine 1.4 H Est GFR (CKD-EPI 2020) 37.33 Glucose 120 H Calcium 8.7 Total Bilirubin 0.5 AST 297 H ALT 131 H Alkaline Phosphatase 101 Troponin I Cancelled 55109 H* Total Protein 7.1 Albumin 2.8 L Urine Color Urine Clarity Urine pH Ur Specific [place] Urine Protein Urine Ketones Urine Blood Urine Nitrite Urine Bilirubin Urine Urobilinogen Ur Leukocyte Esterase Urine RBC Urine WBC Ur Epithelial Cells Urine Crystals Urine Bacteria Urine Casts Urine Mucus Ur Culture Indicated? Urine Glucose 09/28/22 09/28/22 09/28/22 15:53 15:53 18:35 WBC 8.95 RBC 4.71 Hgb 15.4 Hct 44.7 MCV 95 MCH 32.7 MCHC 34.5 RDW 12.9 Plt Count 297 MPV 9.9 Immature Gran % 0.2 Neutrophils % 66.3 Lymphocytes % 14.9 Monocytes % 13.9 Eosinophils % 3.6 Basophils % 1.1 Nucleated RBC % 0.0 Absolute Neutrophils 5.94 Absolute Lymphocytes 1.33 Absolute Monocytes 1.24 H Absolute Eosinophils 0.32 Absolute Basophils 0.10 PT 11.6 H INR 1.1 VBG Lactate Sodium Potassium Chloride Carbon Dioxide Anion Gap BUN Creatinine Est GFR (CKD-EPI 2020) Glucose Calcium Total Bilirubin AST [place] [address] H* Total Protein Albumin Urine Color Urine Clarity Urine pH Ur Specific [place] Urine Protein Urine Ketones Urine Blood Urine Nitrite Urine Bilirubin Urine Urobilinogen Ur Leukocyte Esterase Urine RBC Urine WBC Ur Epithelial Cells Urine Crystals Urine Bacteria Urine Casts Urine Mucus Ur Culture Indicated? Urine Glucose 09/28/22 20:11 WBC RBC Hgb Hct MCV MCH MCHC RDW Plt Count MPV Immature Gran % Neutrophils % Lymphocytes % Monocytes % Eosinophils % Basophils % Nucleated RBC % Absolute Neutrophils Absolute Lymphocytes Absolute Monocytes Absolute Eosinophils Absolute Basophils PT INR VBG Lactate Sodium Potassium Chloride Carbon Dioxide Anion Gap BUN Creatinine Est GFR (CKD-EPI 2020) Glucose Calcium Total Bilirubin AST ALT Alkaline Phosphatase Troponin I Total Protein Albumin Urine Color Yellow Urine Clarity Clear Urine pH 5.0 Ur Specific [place] >= 1.030 H Urine Protein Trace H Urine Ketones Negative Urine Blood Negative Urine Nitrite Negative Urine Bilirubin Small H Urine Urobilinogen 0.2 Ur Leukocyte Esterase Negative Urine RBC 0-2 Urine WBC 3-5 Ur Epithelial Cells Rare Urine Crystals Negative Urine Bacteria Few Urine Casts 3-5 Hyaline Urine Mucus Trace Ur Culture Indicated? Yes Urine Glucose Negative Last Vital Signs Pulse 98 H 09/28/22 20:16 Resp 15 09/28/22 20:20 BP 114/50 L 09/28/22 20:16 Pulse Ox 93 09/28/22 15:04 PAWSS Have you Been Recently Intoxicated or Drunk Within the Last 30 days?: No Have you Ever Experienced Previous Episodes of Alcohol Withdrawal?: No Have you ever Experienced Withdrawal Seizures?: No Have you ever Experienced Delirium Tremens(DT)s?: No Have you ever undergone Alcohol Rehabilitation Treatment (i.e, inpt ot outpatient treatment programs)?: No Have you ever Experienced Blackouts?: No Have you ever Combined Alcohol with other Downers within the last 90 days?: No Have you ever Combined Alcohol with any other Substance of Abuse during the last 90 days?: No Positive Blood Alcohol level on Presentation? [PCS.BAL]: No Evidence of Increased Autonomic Activity (i.e. HR>120, tremor, sweating, agitation, nausea)?: No Result: 0 Time Spent Time spent with Patient: >75 minutes Time was spent: preparing to see the patient(eg.review tests), obtaining and/or reviewing separately otained hiistory, ordering medications,tests, procedures, referring, communicating with other health student career development specialist, indepentently interpreting results and counseling the patient
[2022-09-28 22:42] LABS: Lab Add On Test DONE
[2022-09-28 22:49] LABS: Magnesium 1.5 mg/dL (1.8-2.4)
[2022-09-28] MEDS: cefTRIAXone 1 GM/50 ML BAG IVPB (23:13)
[2022-09-28] MEDS: Lactated Ringers 500 ML IV (23:14)
[2022-09-29] VITALS (29 sets, daily range): BP systolic 54–96; BP diastolic 24–60; PULSE 60–121; RESP 17–32; TEMP 36.6–36.7; O2SAT 90–96
[2022-09-29] MEDS: MAGNESIUM SULFATE 2 GM/50 ML BAG IVPB (01:11)
[2022-09-29] MEDS: AZITHROMYCIN 250 MG in Normal Saline 250 ML IVPB (01:48)
[2022-09-29] MEDS: Normal Saline Flush 10 ML SYR IVP (03:15)
[2022-09-29] MEDS: Ondansetron 4 MG/2 ML VIAL IVP ×2 (03:15→10:44)
[2022-09-29 06:45] LABS: Abs Immature Grans 0.05 10^3/uL (0.0-0.06); Absolute Eosinophil Count 0.39 10^3/uL (0.0-0.7); Absolute Lymphocyte Count 1.46 10^3/uL (1.2-3.4); Absolute Monocyte Count 1.39 10^3/uL (0.1-0.8); Absolute Neutrophil Count 6.57 10^3/uL (1.2-6.7); Eosinophils % 3.9; HCT 43.5 % (36.0-46.0); HGB 14.4 g/dL (11.2-15.7); Immature Grans % 0.5; Lymphocytes % 14.7; MCH 32.4 pg (27.0-33.0); MCHC 33.1 % (32.0-36.0); MCV 98 fL (80-95); MPV 10.6 fL (8.0-11.0); Neutrophils % 65.9; Platelet Count 295 10^3/uL (130-400); RBC 4.44 10^6/uL (3.93-5.22); RDW 13.2 % (11.7-14.6); RDW-SD 47.8 fL; WBC 9.96 10^3/uL (4.4-10.8)
--- NOTE | 2022-09-29 06:50 | W.PULMCC ---
General Date of Service Date of service: 09/29/22 Time of Service: 06:51 Reason for Admission to ICU: Hypotension Assessment and Plan Assessment and plan (1) Cardiogenic shock: Status: Acute (2) STEMI (ST elevation myocardial infarction): Status: Acute (3) Lung cancer: Status: Chronic (4) OMID (acute kidney injury): Status: Acute (5) Respiratory failure with hypoxia: Status: Acute (6) Diplopia: Status: Acute (7) Hypomagnesemia: Status: Acute (8) Elevated LFTs: Status: Acute (9) Pneumonia: Status: Suspected Assessment and plan: This is a 81 yo admitted to ICU initially for presumed septic shock, however it is very evident this morning she is in cardiogenic shock due to STEMI. [facility] [place] cardiology was called yesterday from the ED who felt her picture was related to dehydration and sepsis. Her EKG from the ED with her very elevated troponins is consistent with STEMI. She remained hypotensive overnight and so this morning I placed a central line and a radial arterial line. She was started on Levophed - at the time I thought her hemodynamics would not tolerate dobutamine, although epinephrine would work as well. I am not overly impressed by the CXR as when comparing to her CT, her lung cancer largely occupies this region. It is reasonable to keep her on ceftriaxone, however with her prolonged QTc, I did D/C the azithromycin. I also D/C'ed the metoprolol she was ordered for. Dr. Hernández and myself spoke with [facility] MICU fellow and the cardiology service and she will be transferring to them. Given her Eliquis, she is not a candidate for fibrinolytic therapy, and at this point, I do think she is late into the [place]. Recommendations Pulmonary: Hypoxic respiratory failure - supplemental O2 for sats>92% - likely in setting of cardiogenic shock and volume overload Lung adenocarcinoma - nothing acute to manage Cardiac: STEMI - transfer to tertiary care - holding metoprolol due to hypotension - ASA load - no Plavix for now - trend troponins and serial EKG's Cardiogenic shock - Levophed for MAPs >65 - s/p art line and central line - transfer to tertiary for cardiology services [place] - continue to monitor - Mg repletion to 2.0 - K to 4.0 Hypomagnesemia - as above Renal: OMID - likely congestive and hypotension - place [place] - strict I/O's - consider diuresis when more hemodynamically stable I&O: Intake & Output 09/26/22 09/27/22 09/28/22 09/29/22 23:59 23:59 23:59 23:59 Intake Total 1270 / 1270 1500 / 1500 Output Total 50 / 50 Balance 1270 / 1270 1450 / 1450 Weight 85 kg 85.6 kg Daily Fluid Goal:: even GI Nutrition: Nutrition - make NPO for now Elevated LFT's - likely combination of hypotension and congestion Date of Last Bowel Movement: 09/28/22 Infectious Disease: Pneumonia? - certainly high risk - D/C azithromycin (QTc 550) - can continue ceftriaxone - negative procal Hematologic: No acute concerns Neurologic: Diplopia - recommend head CT - was unable to be completed overnight as facility lost power Endocrine: No acute concerns Lines: R IJ CVC triple lumen Left radial arterial line Place [place] PIV Prophylaxis: on Eliquis Code Status: Resuscitation Status Full Code Subjective Critical and life-threatening events over the past 24 hours: This is an 81 yo admitted to the ICU for presumed septic shock. 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 She has a history of breast cancer in 2006 and 2012 and her lung biopsies were compared to these prior breast cancer cells and it is unclear whether the currect cancer is related to her prior breast cancers or if this represents lung cancer. 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 She has been hypotensive all night, is not on vasopressors currently but is written for metoprolol, which with her current hemodynamic instability is not appropriate so this was discontinued. She is not having chest pain or abdominal pain - she denies pain in general. She does complain of double vision that is improved by closing one eye. She had been ordered for a head CT, but our hospital lost power overnight so this did not get completed. Exam Narrative Exam Narrative: Gen: NAD, normal respiratory effort, well-nourished HENT: PERRL Chest: No respiratory distress, normal appearance of chest, intermittent crackles diffusely Heart: regular rate and irrhythym, no murmurs, rubs or gallops Abdomen: Non-distended, soft, non tender Extremities: No clubbing, + edema, cyanosis, rashes Neuro: AAOx3 , non focal Psych: cooperative, appropriate mental affect Most Recent VS/Results Last Vital Signs Temp 36.6 C 09/29/22 04:10 Pulse 60 09/29/22 04:10 Resp 24 09/29/22 04:10 BP 86/60 L 09/29/22 06:00 Pulse Ox 92 09/29/22 04:10 Laboratory Results - last 24 hr 09/28/22 09/28/22 09/28/22 15:33 15:53 15:53 WBC RBC Hgb Hct MCV MCH MCHC RDW Plt Count MPV Immature Gran % Neutrophils % Lymphocytes % Monocytes % Eosinophils % Basophils % Nucleated RBC % Absolute Neutrophils Absolute Lymphocytes Absolute Monocytes Absolute Eosinophils Absolute Basophils PT INR VBG Lactate 1.5 H Sodium 136 Potassium 3.8 Chloride 101 Carbon Dioxide 21.9 Anion Gap 13.1 H BUN 37 H Creatinine 1.4 H Est GFR (CKD-EPI 2020) 37.33 Glucose 120 H Calcium 8.7 Magnesium Total Bilirubin 0.5 AST 297 H ALT 131 H Alkaline Phosphatase 101 Troponin I Cancelled 67952 H* Total Protein 7.1 Albumin 2.8 L Urine Color Urine Clarity Urine pH Ur Specific [place] Urine Protein Urine Ketones Urine Blood Urine Nitrite Urine Bilirubin Urine Urobilinogen Ur Leukocyte Esterase Urine RBC Urine WBC Ur Epithelial Cells Urine Crystals Urine Bacteria Urine Casts Urine Mucus Ur Culture Indicated? Urine Glucose Add-On Test Request 09/28/22 09/28/22 09/28/22 15:53 15:53 18:35 WBC 8.95 RBC 4.71 Hgb 15.4 Hct 44.7 MCV 95 MCH 32.7 MCHC 34.5 RDW 12.9 Plt Count 297 MPV 9.9 Immature Gran % 0.2 Neutrophils % 66.3 Lymphocytes % 14.9 Monocytes % 13.9 Eosinophils % 3.6 Basophils % 1.1 Nucleated RBC % 0.0 Absolute Neutrophils 5.94 Absolute Lymphocytes 1.33 Absolute Monocytes 1.24 H Absolute Eosinophils 0.32 Absolute Basophils 0.10 PT 11.6 H INR 1.1 VBG Lactate Sodium Potassium Chloride Carbon Dioxide Anion Gap BUN Creatinine Est GFR (CKD-EPI 2020) Glucose Calcium Magnesium Total Bilirubin AST ALT Alkaline Phosphatase Troponin I 86094 H* Total Protein Albumin Urine Color Urine Clarity Urine pH Ur Specific [place] Urine Protein Urine Ketones Urine Blood Urine Nitrite Urine Bilirubin Urine Urobilinogen Ur Leukocyte Esterase Urine RBC Urine WBC Ur Epithelial Cells Urine Crystals Urine Bacteria Urine Casts Urine Mucus Ur Culture Indicated? Urine Glucose Add-On Test Request 09/28/22 09/28/22 09/28/22 18:35 20:11 22:32 WBC RBC Hgb Hct MCV MCH MCHC RDW Plt Count MPV Immature Gran % Neutrophils % Lymphocytes % Monocytes % Eosinophils % Basophils % Nucleated RBC % Absolute Neutrophils Absolute Lymphocytes Absolute Monocytes Absolute Eosinophils Absolute Basophils PT INR VBG Lactate Sodium Potassium Chloride Carbon Dioxide Anion Gap BUN Creatinine Est GFR (CKD-EPI 2020) Glucose Calcium Magnesium 1.5 L Total Bilirubin AST ALT Alkaline Phosphatase Troponin I Total Protein Albumin Urine Color Yellow Urine Clarity Clear Urine pH 5.0 Ur Specific [place] >= 1.030 H Urine Protein Trace H Urine Ketones Negative Urine Blood Negative Urine Nitrite Negative Urine Bilirubin Small H Urine Urobilinogen 0.2 Ur Leukocyte Esterase Negative Urine RBC 0-2 Urine WBC 3-5 Ur Epithelial Cells Rare Urine Crystals Negative Urine Bacteria Few Urine Casts 3-5 Hyaline Urine Mucus Trace Ur Culture Indicated? Yes Urine Glucose Negative Add-On Test Request DONE 09/29/22 05:35 WBC 9.96 RBC 4.44 Hgb 14.4 Hct 43.5 MCV 98 H MCH 32.4 MCHC 33.1 RDW 13.2 Plt Count 295 MPV 10.6 Immature Gran % 0.5 Neutrophils % 65.9 Lymphocytes % 14.7 Monocytes % 14.0 Eosinophils % 3.9 Basophils % 1.0 Nucleated RBC % 0.0 Absolute Neutrophils 6.57 Absolute Lymphocytes 1.46 Absolute Monocytes 1.39 H Absolute Eosinophils 0.39 Absolute Basophils 0.10 PT INR VBG Lactate Sodium Potassium Chloride Carbon Dioxide Anion Gap BUN Creatinine Est GFR (CKD-EPI 2020) Glucose Calcium Magnesium Total Bilirubin AST ALT Alkaline Phosphatase Troponin I Total Protein Albumin Urine Color Urine Clarity Urine pH Ur Specific [place] Urine Protein Urine Ketones Urine Blood Urine Nitrite Urine Bilirubin Urine Urobilinogen Ur Leukocyte Esterase Urine RBC Urine WBC Ur Epithelial Cells Urine Crystals Urine Bacteria Urine Casts Urine Mucus Ur Culture Indicated? Urine Glucose Add-On Test Request Review of Systems All systems reviewed & are unremarkable except as noted in HPI and below Time spent with patient Time spent in Critical Care: 180 Time spent in Critical care included: Performing procedures not included in c.c time, Coordination of care, Chart review, Documenting critically ill care, Time at immediate bedside and Discussing critically ill care with other medical staff Pocus Exam Limited Cardiac Exam DATE OF EXAM: 09/29/22 TIME OF EXAM: 07:37 PROVIDER THAT PERFORMED THE STUDY: Lolis Caballero IS THIS A REPEAT EXAM DURING THIS ENCOUNTER: Yes, Different provider REASON FOR EXAM: Evaluation of LV function and Hypotension VISUALIZED STRUCTURES: four chambers, Interventricular septum and IVC VIEW OBTAINED: Parasternal long-axis, Parasternal short-axis and Subxiphoid PERTINENT FINDINGS/IMPRESSION: LV dysfunction :moderate (anterolateral wall hypokinetic) and Plethoric IVC Exam complete Procedure Note Date of procedure: 09/29/22 Pre-op diagnosis: Cardiogenic Shock Post-op diagnosis: same Procedure: Central Line Placement Indication: Cardiogenic Shock Line Priority: Emergent Tip Confirmation: Chest X-ray Consent Obtained: Yes, verbal consent obtained The patient and/or family have been made aware of the indications for a central line as well as the associated risks with this procedure. Central Catheter Type: Non-Tunneled Non-Tunneled Catheter: Standard Line Location: right IJ Final tip location satisfactory? Yes Line Lumens (#): 3 Line External Length:5cm Line Securement Device: Sutured Catheter Secured At: 15cm Central Line Methods: A compliant time out was performed with nursing to identify patient, procedure, location, risks and consent verification. Using standard sterile procedures the patient was drapped and the site sterilized. Using a modified Seldinger technique the right internal jugular was cannulated and the guidewire was attempted to be thread. There was bounce back with resistance, despite various troubleshooting with angles and positioning, so a second attempt at a different place was attempted. The IJ was once again cannulated with ease and the guidewire thread easily. There were no arrythmias present with guidewire at 30cm. Confirmation of the wire in the IJ was verified with ultrasound. Site was dilated and catheter placed with ease. Central line sutured, biopacth placed and dressing applied. Number of Attempts: 2 Number of Sites Attempted:1 Number of Kits Used:1 Central Line Operators: 1 Number Of Operators: 1 [employer] Mechanic Helper's Name: Lolis Caballero MD Unless otherwise noted, there were no complications, no blood loss and no cultures obtained. Multi-Disciplinary Checklist Lines/Tubes CENTRAL LINE: yes, Central Line Day#: 0 ARTERIAL LINE: yes, Arterial Line Day#: 0 MEDINA: no ENDOTRACHEAL TUBE: no ICU Maintenance GLUCOSE 140-180mg/dL: yes NUTRITION AT GOAL: no, Reason/Intervention: patient with no appetite PRESSURE ULCER: no RESTRAINTS: no ANTIBIOTICS(if yes, consider Stewardship): Yes Social Issues FAMILY UPDATED: yes PT/OT: no, Reason/Intervention: not currently appropriate GOALS/DISPOSITION/INDIRECT SALES REPRESENTATIVE: yes CODE STATUS: Full (this was personally verified by me this morning) Prophylaxis DVT PROPHYLAXIS: yes GI PROPHYLAXIS: no Procedure Procedure and Findings -: Arterial Line Placement Date Performed: 09/29/22 Time Performed: 829 Performed by: Lolis Caballero MD Indications and/or Provisional Diagnosis: Invasive hemodynamic monitoring Consent: The patient has been informed and understands the information and situation provided to them about the procedure. They have capacity and ability to weigh risks, goals and benefits as well as the alternatives of proposed treatments including the option of not undergoing the procedure. The patient has expressed their rationale and executed the choice to proceed forward with the procedure with no undue influence or coercion. Type of Anesthesia/Sedation: Local anesthetic with 1% lidocaine was administered Fluids Given: See I&O Unless otherwise noted, there was no blood loss, specimens removed, cultures obtained, or drains retained. Time Out: A time-out was completed prior to procedure verifying correct patient, procedure, site, positioning, and special equipment if applicable. Procedure Technique/Description of Procedure: The patient was prepped and draped in the usual sterile fashion. An arterial line was introduced percutaneously and via the Seldinger technique into the left radial artery after 1 attempt(s). Good blood return without significant extremity blanching was noted. Good arterial wave form was noted. Blood loss was minimal. Post Procedure Diagnosis and Findings: Same as Indications and/or Provisional Diagnosis Complications: None Lolis Caballero MD Pulmonary & Critical Care
--- NOTE | 2022-09-29 07:00 | RT.EKG_ITS ---
APPROVED REPORT Exam: Resting ECG Reason for Exam: elevated troponin Patient Location: I HR:96 bpm ECG Measurements Heart Rate 96 AXIS DE 58 P 49 QRSd 119 QRS 102 QT 368 T 255 QTc 465 Conclusion Sinus rhythm...normal P axis, V-rate 50- 99 Short DE interval...DE <110mS Incomplete right bundle branch block...QRSd >112, terminal axis(90,270) Anterolateral infarct, acute (LAD)...ST >0.20mV, V2-V6,I,aVL
[2022-09-29 07:03] LABS: ALT 134 U/L (14-59); AST 292 U/L (15-37); Albumin 2.6 g/dL (3.4-5.0); Alkaline Phosphatase 88 U/L (46-116); Anion Gap 10.9 mmol/L (3-11); BUN 43 mg/dL (7-18); Bilirubin, Total 0.4 mg/dL (0.2-1.0); CO2 23.1 mmol/L (21.0-32.0); CREATININE 1.6 mg/dL (0.55-1.02); Calcium 8.4 mg/dL (8.5-10.1); Chloride 103 mmol/L (98-107); Glucose 123 mg/dL (74-106); Potassium 4.2 mmol/L (3.5-5.1); Sodium 137 mmol/L (136-145); Total Protein 6.7 g/dL (6.4-8.2)
[2022-09-29 07:07] LABS: Magnesium 2.4 mg/dL (1.8-2.4)
[2022-09-29 07:10] LABS: NT-proBNP 17959 pg/mL (<300)
[2022-09-29] MEDS: Norepinephrine in D5W 8 MG/250 ML BAG 9.375 MG IV (07:29)
[2022-09-29 08:09] LABS: Procalcitonin < 0.1 ng/mL
--- NOTE | 2022-09-29 08:15 | DI.RAD_ITS ---
Exam(s) XR PORTABLE CHEST AP EXAM: XR PORTABLE CHEST AP CLINICAL HISTORY: line placement TECHNIQUE: 2D digital imaging was performed. COMPARISON: DX XR CHEST 2 VIEWS from 03/23/[address] CHEST W from 03/24/2022 CR XR PORTABLE CHEST AP from 09/28/2022 FINDINGS: Exam is limited by multiple leads coiled over the chest. There is a central venous catheter which has been placed which projects in the expected location of t he superior vena cava. There is no pneumothorax. There has been no significant interval change in the large area of presumed consolidation and or flui d spine the majority of the right chest. There is [id number] midline shift, unchanged. There may be a tiny left pleural effusion. IMPRESSION: This status post placement central line. No change in appearance of the chest. DATA REPOSITORY: RADIATION DOSE DELIVERED:
--- NOTE | 2022-09-29 08:23 | W.PM.DS.N ---
Date of service: 09/29/22 Time of Service: 08:24 DS: Diagnosis Discharge Diagnosis (1) Non-ST elevation AL (NSTEMI): Status: Acute (2) Sepsis: Status: Suspected (3) Pneumonia: Status: Suspected (4) Lung cancer: Status: Chronic (5) Atrial fibrillation: Status: Chronic (6) Hypertension: (7) Elevated liver enzymes: Status: Acute (8) Renal insufficiency: Status: Chronic (9) Discharge planning issues: Status: Acute Discharge Plan Disposition Patient Disposition: Transfer-Acute Inpatient Care Specific Acute Inpt Facility: [facility] Condition: Critical Discharge Details Reason For Visit: Sepsis,Pneumonia,Dehydration Admit Date/Time: 09/28/22 20:43 Admit Provider: Louis Kapadia Attending Provider: Louis Kapadia Primary Care Provider: Robinson Zacarias JR Hospital Course Hospital Course: 81-year-old female with a history of mucinous adenocarcinoma who had her first round of immune checkpoint therapy 2 weeks prior to admission. Her other comorbidities include essential hypertension, atrial fibrillation on chronic anticoagulation with apixaban, remote history of breast cancer status post right mastectomy who presented to the emergency department with 3 to 4 days of increased shortness of breath, generalized weakness, fatigue, nausea, diarrhea. She also reportedly felt feverish the day prior to admission but checked her temperature and they were normal. She had poor oral intake for the last 3 days prior to admission. Does have a cough with minimal sputum production. She denied any chest pain or pressure and denied any neck arm or back pain. Stools have been about 3 a day watery but no bloody diarrhea. Patient was hypotensive in the emergency department with pressures varying between as low as 79/27 to 104/50. ECG at the time of admission was indeterminate for STEMI but in retrospect probably not Sgarbossa criteria for STEMI. Her admission troponin level was 40,900. A proBNP was not done on admission. Her CBC on admission showed no anemia, hemoglobin 15.4 g and no leukocytosis, WBCs of 8900. With no left shift. Procalcitonin was not checked on admission but subsequently found the next morning to be normal at less than 0.1 and a repeat CBC continue to show no anemia and no leukocytosis. OMID was diagnosed on admission w/ BUN 37 and creatinine 1.4 which did not improve overnight w/ iv fluids. Her chest x-ray was suggestive of consolidation in the lower half the right lung possibly representing atelectasis, pneumonia, effusion however the patient has a known right hilar mass and adenopathy. CT scan scan of the chest with contrast was performed to rule out a pulmonary embolus. CT scan was read as severe pneumonia with dense consolidation right upper lobe with severe atelectasis with consolidation of the entire right lower lobe. Also 17 mm mass superior segment left lower lobe as well as a 7 mm mass in the posterior left lower lobe. Working diagnosis on admission was the patient was suffering from hypovolemia and sepsis and she was started on Rocephin 2 g IV and azithromycin. She was given IV fluids after ED provider who performed a POCUS exam which was interpreted as showing normal to hyperdynamic LV function with the exception of the septal wall motion abnormality secondary to her bundle branch block. IVC was interpreted as being small and collapsible greater than 50% with inspiration. Thus the patient was given IV fluids. Patient was admitted to the intensive care unit for treatment of sepsis and hypovolemia and type II NSTEMI. However throughout the night patient continued to suffer hypotension requiring repeated fluid boluses. Throughout her hospital stay she had no symptoms of chest pain but did experience symptoms of dyspnea and the following morning her troponin had risen overnight to 58,000 and her proBNP was 18,000. Bedside POCUS exam was repeated and her bedside echo showed anterior and anterolateral wall motion abnormalities and repeat EKG now is more indicative of an ST elevation myocardial infarction with diffuse anterolateral upward sloping ST elevation of 4 to 5 mm and loss of R waves across the entire precordial leads. Patient was hypotensive with systolic pressures in the 60s to 70s. Patient was started on norepinephrine drip and titrated to stabilize her blood pressure. Lolis Caballero, chisel mortiser operator/critical care medicine attending placed a right internal jugular vein CVP line as well as placement of a left radial A-line. Norepinephrine was titrated up to 10 mcg/min to stabilize her blood pressure. Patient did not require intubation. [facility] was contacted and I discussed the case with both cardiology attending, Dr. Selvin Hernandez as well as the MICU fellow Dr. Silvino Calero. Dr. Calero was able to review her ECG and after discussion it was decided she was appropriate for transfer. Dr. Calero did express concern about the transport times to [place], [place] versus to [place], [place]. I expressed to him that [facility] [place] been closed to transfers d/t bed capacity throughout the night. I also indicated she would probably not be a thrombolytic candidate at this point d/t her being on apixaban for her afib. Dr. Hernandez concurred she is not a lytic candidate. As Dr. Hernandez had not seen her ECG's yet, he could not comment as to whether or not this is a STEMI or NSTEMI. Even if [facility] had a bed available by the time mobile critical care ground transport could be mobilized, she would not meet the 90 minute time from for door to cath at either facility. I did request air transport but d/t weather conditions, they were not available for transport. Family presented to the ICU and were updated, patient and family are in agreement w/ the transfer. In the interim of starting my dc note, we were updated that [facility] available and will provide air transport to [facility]. Patient is now more hemodynamically stable but remains on norepinephrine drip at 10 mcg/minute and is free of any chest pain/pressure. Home Meds and New Rx's Prescriptions: Continued metoprolol succinate 50 mg cap,sprinkle,ER 24hr dose pack 50 mg PO DAILY cholecalciferol (vitamin D3) 1,000 unit capsule 1,000 unit PO DAILY Eliquis 5 mg tablet 5 mg PO BID loratadine [Claritin] 10 mg tablet 10 mg PO DAILY fluticasone propionate 50 mcg/actuation spray,suspension 1 spray intranasal DAILY Rx Instructions: administer into each nostril valsartan-hydrochlorothiazide 160-12.5 mg tablet 1 tab PO DAILY Discharge Instructions Instructions: Heart Attack (DC) Activity:: bedrest Equipment/Supplies:: No Equipment Needed Diet:: NPO Discharge Orders Discharge Orders: Discharge Order (Routine); Ordered 09/29/22 Ordered By: Alex Hernández DS: Summary Time Spent with Patient providing and/or coordinating discharge services: Greater than 30 minutes Specific discharge activities: Interview/exam of patient, educating patient and/or family about need for transfer and alternative treatment options, coordination of transfer w/ receiving facility and discussion of case w/ accepting provider(s), completion of transfer orders and discharge summary Status at Discharge Functional status at discharge: bed bound Overall status at discharge: patient is not back to baseline Mental Status: mental status grossly normal Speech and Movement: speech and movement normal Mood: congruent mood Affect: normal affect Quality: AMI Clinical Trial Participant: No Contraindication for No Fibrinolytic Therapy: Medical contraindication Exam Narrative Exam Narrative: Elderly white female who upon my arrival to the intensive care unit this morning appeared to be shocky she was hypotensive diaphoretic cool skin and poor capillary refill. However she was alert and oriented to person place time circumstance. She was pain-free. After resuscitation color and her skin looks much better she is calm and no longer diaphoretic. No overt JVD no carotid bruits carotid pulses initially were weak but after norepinephrine was started she has strong carotid pulses Lungs clear anteriorly she has some diminished breath sounds right base no rhonchi or wheezes Heart regular irregular no appreciable murmur rub Abdomen soft nontender nondistended normal bowel sounds no organomegaly no bruits Lower extremities without peripheral edema feet are cool but not mottled she does have chronic ecchymosis over the left great toe initially capillary refill was poor but is improved with stabilization of her blood pressure. Pedal pulses are diminished Neuro exam grossly intact no focal motor or sensory deficits no focal cranial nerve deficits Psych Mental Status: mental status grossly normal Speech and Movement: speech and movement normal Mood: congruent mood Affect: normal affect DS: Data Vitals/I&O Vitals and I&O: Vital Signs Temperature 36.6 C 09/29/22 04:10 Temperature Source Temporal Artery Scan 09/29/22 04:10 Pulse 60 09/29/22 04:10 Pulse 93 H 09/28/22 23:17 Respiratory Rate 24 09/29/22 04:10 Respiratory Effort Normal, Non-Labored 09/29/22 04:00 Respiratory Depth Normal 09/29/22 04:00 Respiratory Pattern Normal 09/29/22 04:00 Blood Pressure 86/60 L 09/29/22 06:00 Blood Pressure Mean 61 09/28/22 23:17 Blood Pressure Position Supine 09/28/22 15:04 Pulse Oximetry 92 09/29/22 04:10 Oxygen Delivery Method Nasal Cannula 09/29/22 04:10 Oxygen Flow Rate 3 09/29/22 04:10 Pain Level 0 09/29/22 04:00 Comment RN notified 09/29/22 06:00 Intake & Output 09/28/22 09/28/22 09/29/22 11:59 23:59 11:59 Intake Total 1270 / 1270 1500 / 1500 Output Total 50 / 50 Balance 1270 / 1270 1450 / 1450 Weight 85 kg 85.6 kg Intake: IV 1270 / 1270 1500 / 1500 Output: Urine 50 / 50 Other: Urine Color Dark Katy Urine Appearance Clear Urine Odor Normal Voiding Methods Diaper Incontinent Data Completed and Pending Labs on day of discharge: Labs from last 24 hours 09/29/22 09/29/22 09/29/22 05:35 05:35 05:35 WBC 9.96 RBC 4.44 Hgb 14.4 Hct 43.5 MCV 98 H MCH 32.4 MCHC 33.1 RDW 13.2 Plt Count 295 MPV 10.6 Immature Gran % 0.5 Neutrophils % 65.9 Lymphocytes % 14.7 Monocytes % 14.0 Eosinophils % 3.9 Basophils % 1.0 Nucleated RBC % 0.0 Absolute Neutrophils 6.57 Absolute Lymphocytes 1.46 Absolute Monocytes 1.39 H Absolute Eosinophils 0.39 Absolute Basophils 0.10 PT INR VBG Lactate Sodium Potassium Chloride Carbon Dioxide Anion Gap BUN Creatinine Est GFR (CKD-EPI 2020) Glucose Calcium Magnesium Total Bilirubin AST ALT Alkaline Phosphatase Troponin I NT-Pro-B Natriuret Pep 45633 H Total Protein Albumin Procalcitonin < 0.1 Urine Color Urine Clarity Urine pH Ur Specific [place] Urine Protein Urine Ketones Urine Blood Urine Nitrite Urine Bilirubin Urine Urobilinogen Ur Leukocyte Esterase Urine RBC Urine WBC Ur Epithelial Cells Urine Crystals Urine Bacteria Urine Casts Urine Mucus Ur Culture Indicated? Urine Glucose Add-On Test Request 09/29/22 09/29/22 09/28/22 05:35 05:35 22:32 WBC RBC Hgb Hct MCV MCH MCHC RDW Plt Count MPV Immature Gran % Neutrophils % Lymphocytes % Monocytes % Eosinophils % Basophils % Nucleated RBC % Absolute Neutrophils Absolute Lymphocytes Absolute Monocytes Absolute Eosinophils Absolute Basophils PT INR VBG Lactate Sodium 137 Potassium 4.2 Chloride 103 Carbon Dioxide 23.1 Anion Gap 10.9 BUN 43 H Creatinine 1.6 H Est GFR (CKD-EPI 2020) 31.80 Glucose 123 H Calcium 8.4 L Magnesium 2.4 Total Bilirubin 0.4 AST 292 H ALT 134 H Alkaline Phosphatase 88 [place] I [address] H* NT-Pro-B Natriuret Pep Total Protein 6.7 Albumin 2.6 L Procalcitonin Urine Color Urine Clarity Urine pH Ur Specific [place] Urine Protein Urine Ketones Urine Blood Urine Nitrite Urine Bilirubin Urine Urobilinogen Ur Leukocyte Esterase Urine RBC Urine WBC Ur Epithelial Cells Urine Crystals Urine Bacteria Urine Casts Urine Mucus Ur Culture Indicated? Urine Glucose Add-On Test Request DONE 09/28/22 09/28/22 09/28/22 20:11 18:35 18:35 WBC RBC Hgb Hct MCV MCH MCHC RDW Plt Count MPV Immature Gran % Neutrophils % Lymphocytes % Monocytes % Eosinophils % Basophils % Nucleated RBC % Absolute Neutrophils Absolute Lymphocytes Absolute Monocytes Absolute Eosinophils Absolute Basophils PT INR VBG Lactate Sodium Potassium Chloride Carbon Dioxide Anion Gap BUN Creatinine Est GFR (CKD-EPI 2020) Glucose Calcium Magnesium 1.5 L Total Bilirubin AST ALT Alkaline [place] [address] H* NT-Pro-B Natriuret Pep Total Protein Albumin Procalcitonin Urine Color Yellow Urine Clarity Clear Urine pH 5.0 Ur Specific [place] >= 1.030 H Urine Protein Trace H Urine Ketones Negative Urine Blood Negative Urine Nitrite Negative Urine Bilirubin Small H Urine Urobilinogen 0.2 Ur Leukocyte Esterase Negative Urine RBC 0-2 Urine WBC 3-5 Ur Epithelial Cells Rare Urine Crystals Negative Urine Bacteria Few Urine Casts 3-5 Hyaline Urine Mucus Trace Ur Culture Indicated? Yes Urine Glucose Negative Add-On Test Request 09/28/22 09/28/22 09/28/22 15:53 15:53 15:53 WBC 8.95 RBC 4.71 Hgb 15.4 Hct 44.7 MCV 95 MCH 32.7 MCHC 34.5 RDW 12.9 Plt Count 297 MPV 9.9 Immature Gran % 0.2 Neutrophils % 66.3 Lymphocytes % 14.9 Monocytes % 13.9 Eosinophils % 3.6 Basophils % 1.1 Nucleated RBC % 0.0 Absolute Neutrophils 5.94 Absolute Lymphocytes 1.33 Absolute Monocytes 1.24 H Absolute Eosinophils 0.32 Absolute Basophils 0.10 PT 11.6 H INR 1.1 VBG Lactate 1.5 H Sodium Potassium Chloride Carbon Dioxide Anion Gap BUN Creatinine Est GFR (CKD-EPI 2020) Glucose Calcium Magnesium Total Bilirubin AST ALT Alkaline Phosphatase Troponin I NT-Pro-B Natriuret Pep Total Protein Albumin Procalcitonin Urine Color Urine Clarity Urine pH Ur Specific [place] Urine Protein Urine Ketones Urine Blood Urine Nitrite Urine Bilirubin Urine Urobilinogen Ur Leukocyte Esterase Urine RBC Urine WBC Ur Epithelial Cells Urine Crystals Urine Bacteria Urine Casts Urine Mucus Ur Culture Indicated? Urine Glucose Add-On Test Request 09/28/22 09/28/22 15:53 15:33 WBC RBC Hgb Hct MCV MCH MCHC RDW Plt Count MPV Immature Gran % Neutrophils % Lymphocytes % Monocytes % Eosinophils % Basophils % Nucleated RBC % Absolute Neutrophils Absolute Lymphocytes Absolute Monocytes Absolute Eosinophils Absolute Basophils PT INR VBG Lactate Sodium 136 Potassium 3.8 Chloride 101 Carbon Dioxide 21.9 Anion Gap 13.1 H BUN 37 H Creatinine 1.4 H Est GFR (CKD-EPI 2020) 37.33 Glucose 120 H Calcium 8.7 Magnesium Total Bilirubin 0.5 AST 297 H ALT 131 H Alkaline Phosphatase 101 [place] I [address] H* Cancelled NT-Pro-B Natriuret Pep Total Protein 7.1 Albumin 2.8 L Procalcitonin Urine Color Urine Clarity Urine pH Ur Specific [place] Urine Protein Urine Ketones Urine Blood Urine Nitrite Urine Bilirubin Urine Urobilinogen Ur Leukocyte Esterase Urine RBC Urine WBC Ur Epithelial Cells Urine Crystals Urine Bacteria Urine Casts Urine Mucus Ur Culture Indicated? Urine Glucose Add-On Test Request 09/28/22 20:11 Urine - Reflex from Ua Urine Culture - Pending 09/28/22 16:05 Blood Blood Culture - Pending 09/28/22 15:53 Blood Blood Culture - Pending Preliminary micro results at discharge 09/28/22 20:11 Urine Culture - Pending Urine - Reflex from Ua 09/28/22 16:05 Blood Culture - Pending Blood 09/28/22 15:53 Blood Culture - Pending Blood PFSH All Active Problems Discharge planning issues (Acute) Atrial fibrillation (Chronic) Renal insufficiency (Chronic) Elevated liver enzymes (Acute) Lung cancer (Chronic) Non-ST elevation AL (NSTEMI) (Acute) Nail dystrophy (Acute) Skin lesion of right upper extremity (Acute ~05/2018) H/O mastectomy (Chronic) with SLN bx Medical History Back pain Basal cell carcinoma Breast cancer, right Hypertension Left hip pain Surgical History S/P laparotomy for ectopic S/P lumpectomy of breast S/P right mastectomy Social History Smoking/Tobacco Use Status: Former Tobacco Use Smoking risk assessment performed?: Yes Alcohol Intake: current Alcohol Intake frequency: holidays/special occasions only Drug use: Never Substance use type: does not use Do you feel safe at home: Yes Do you feel safe in your relationship?: Yes Additional Social history: Lives in [place] with after living for many years in [place], [place]. Time Spent with Patient Time Spent with Patient: >85 minutes Time was spent: preparing to see the patient(eg.review tests), obtaining and/or reviewing separately otained hiistory, ordering medications,tests, procedures, referring, communicating with other health nonfarm animal caretaker (seen and discussed w/ Dr. Caballero, multiple calls to [facility] cardiology and MICU fellow), indepentently interpreting results, counseling the patient and care coordination
--- NOTE | 2022-09-29 08:31 | CMDISCH_ITS ---
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 Visits: 1 Answers: Total Score: 10 Risk of Readmission: High Risk Care Management Discharge Plan Reason for Hospitalization: Sepsis,Pneumonia,Dehydration Discharge Plan: Transfer-Acute Inpatient Care at [facility] Patient/Family Education Needs: Review transfer instructions Services Needed at Discharge: Transportation (Via [facility], coordinated by RN Bath Steward/Stewardess)
--- NOTE | 2022-09-29 09:00 | NUR.NOTE ---
0900 Assisting with preparing patient's transfer packet. I called and spoke with [facility] transport to verify status. I was informed by [facility] transportation that the ground crew was arriving at 0900 and would plan to be on the road to [facility] after a vehicle safety check (approximately 0930). Approximate arrival time to [facility] ICU is 1130. I notified Moses Irene RN Nursing Barn And Property Manager, Gill Johnson (pt's primary RN)Eva AMARAL (secondary nurse) and Dr. Caballero. All listed were notified in person in the unit. Nursing Note:
[2022-09-29] MEDS: Atorvastatin 40 MG TAB 80 MG PO (09:47)
[2022-09-29] MEDS: Loratidine 10 MG TAB PO (09:47)
[2022-09-29] MEDS: Fluticasone NASAL SPRAY 16 GM BTL NS (09:48)
--- NOTE | 2022-09-29 10:55 | NUR.NOTE ---
Nursing Note: Transport team VINNY Landon questioning loading dose of plavix, ASA and heparin. Plavix held this AM as per hospitalist and 7AM loading dose not given. deburring technician Patton called [facility] accepting physician Dr. Craven and confirmed that he only wanted ASA given and VINNY Landon told [facility] ICU team that Transport would adminsitered drugs needed by cardiology in the helicopter, inlcuding the ASA.
--- NOTE | 2022-09-29 12:59 | NUR.NOTE ---
Nursing Note: 0842 This nurse called patient's --no answer. 0845 This nurse called patient's daughter, Mary, to notify her patient had had an TX with a high troponin level, patient was getting a central line and medications for blood pressure support and an arterial line for blood pressure monitoring as patient had a low blood pressure.
== END 2022-09-29 10:55 | disposition short-term general hospital (02) | DRG 871 ==
LOC: ER 20:56 → ICU 21:43
PROVIDERS: Student in an Organized Health Care Education/Training Program; Admitting Provider Family Medicine; Emergency Provider Emergency Medicine Emergency Medical Services; PCP Family Medicine; Visit Provider Family Medicine
DX: A41.9 Sepsis, unspecified organism (principal); I21.3 ST elevation (STEMI) myocardial infarction of unspecified site; J18.9 Pneumonia, unspecified organism; R57.0 Cardiogenic shock; J96.01 Acute respiratory failure with hypoxia; C34.90 Malignant neoplasm of unspecified part of unspecified bronchus or lung; I48.20 Chronic atrial fibrillation, unspecified; N17.9 Acute kidney failure, unspecified; E86.0 Dehydration; N18.9 Chronic kidney disease, unspecified; Z79.01 Long term (current) use of anticoagulants; Z79.899 Other long term (current) drug therapy; R19.7 Diarrhea, unspecified; R11.0 Nausea; R53.83 Other fatigue; Z85.3 Personal history of malignant neoplasm of breast; Z87.891 Personal history of nicotine dependence; E83.42 Hypomagnesemia; R79.89 Other specified abnormal findings of blood chemistry; H53.2 Diplopia; I12.9 Hypertensive chronic kidney disease with stage 1 through stage 4 chronic kidney disease, or unspecified chronic kidney disease; R00.8 Other abnormalities of heart beat
CPT/HCPCS: 36415; 80053; 84145; 87040; 93005; 96365; 99285; 71045; 81003; 81015; 83605; 83735; 83880; 84484; 85025; 85610; 87086; 93010; 99291; J0456; J0696; J2405